=== PATIENT | male | born 1950 | race American Indian/Alaskan Native ===

== ENCOUNTER 2017-04-23 08:00 | Day surgery (SDC) | payer BC ==
--- NOTE | 2017-04-23 08:30 | Anesthesia Consultation ---
Anesthesia Consult and Med Hx Date of service: 04/23/17 - Airway Anesthetic Teeth Evaluation: Partials ROM Head & Neck: Adequate Mental/Hyoid Distance: Adequate Mallampati Class: Class II Intubation Access Assessment: Probably Good - Pulmonary Exam CTA: Yes - Cardiac Exam Cardiac Exam: RRR - Pre-Operative Health Status ASA Pre-Surgery Classification: ASA3 Proposed Anesthetic Plan: MAC - Cardiovascular System Hx Hypertension: Yes - Gastrointestinal Hx Gastroesophageal Reflux Disease: Yes (No symptoms today) - Endocrine Hx Non-Insulin Dependent Diabetes: Yes
--- NOTE | 2017-04-23 08:30 | Anesthesia Day of Surgery ---
Anesthesia Day of Surgery - Day of Surgery Patient Examined: Yes Patient H&P Reviewed: Yes Patient is NPO: Yes
[2017-04-23] MEDS ORDERED: XYLOCAINE 1% 20 mL ONE (08:41)
[2017-04-23] MEDS ORDERED: DIPRIVAN 10 MG/ML IV ONE ×2 (08:42)
[2017-04-23] MEDS ORDERED: PEPCID IV NR (09:00)
[2017-04-23] MEDS ORDERED: NACL 0.9% 1000 ML 1,000 ML IV SCH (09:00)
[2017-04-23] MEDS ORDERED: WATER FOR IRRIG STERILE IR ONE (09:05)
--- NOTE | 2017-04-23 09:49 | Short Stay Summary ---
Short Stay Documentation Date of service: 04/23/17 Narrative H&P: The patient presents for EGD for evaluation for Mckeon's and surveillance colonoscopy for history of polyps. His last colonoscopy was 6 years ago. - History Past Medical History: diabetes, hypertension, other (glaucoma) Past Surgical History: Other (fracture of extremity surgery) Social history: no significant social history, , lives with family, full code, no smoking, no alcohol abuse, no prescription drug abuse - Allergies and Medications Current Medications: Allergies No Known Allergies Allergy (Verified 04/23/17 08:13) Home Medications Medication Instructions Recorded Confirmed Last Taken Type Adult Low Dose Aspirin EC 81 mg PO DAILY 04/23/17 04/23/17 04/22/17 History Alphagan P 0.1% 0.1 mg INTRAOCULA DAILY 04/23/17 04/23/17 04/22/17 History AtorvaSTATin 10 mg PO DAILY 04/23/17 04/23/17 04/22/17 History Fluocinolone Acetonide 0.01 mg DAILY 04/23/17 04/23/17 04/22/17 History Fluticasone Propionate 50 mcg INHALATION DAILY 04/23/17 04/23/17 04/22/17 History Pantoprazole 40 mg PO BID 04/23/17 04/23/17 04/22/17 History Restasis 0.05% 0.05 mg INTRAOCULA DAILY 04/23/17 04/23/17 04/22/17 History Travatan Z 0.004% 0.004 mg INTRAOCULA DAILY 04/23/17 04/23/17 04/22/17 History Valsartan-Hctz 160-25 mg Tab 1 tab PO DAILY 04/23/17 04/23/17 04/23/17 History amLODIPine 10 mg PO DAILY 04/23/17 04/23/17 04/23/17 History metFORMIN 500 mg PO DAILY 04/23/17 04/23/17 04/22/17 History Active Medications Famotidine (Pepcid) 20 mg IV PREOP NR Stop: 04/23/17 11:00 Sodium Chloride (Nacl 0.9% 1000 Ml) 1,000 mls @ 50 mls/hr IV DIRECT JOHANNY Last Admin: 04/23/17 08:57 Dose: 50 mls/hr - Physical exam General appearance: no acute distress, well-nourished Integumentary: no rash, no growths, no abnormal pigmentation HEENT: Atraumatic, PERRLA, EOMI, Mucous membr. moist/pink Lungs: Clear to auscultation, Normal air movement Breasts: deferred Heart: Regular rate, Normal S1, Normal S2, No murmurs, no Gallops Gastrointestinal: normoactive bowel sounds, no tenderness, no distended, no masses, no organomegaly, no hepatomegaly, no splenomegaly Male Genitourinary: deferred Rectal Exam: normal exam-external/orifice, normal rectal tone, no mass Extremities: no ischemia, pulses intact, pulses symmetrical, No edema, normal temperature, normal color, Full ROM Neurological: Normal gait, Normal speech, Strength at 5/5 X4 ext, Normal tone, Sensation intact, Cranial nerves 3-12 NL - Brief post op/procedure progress note Date of procedure: 04/23/17 Findings: see dictated reports Estimated blood loss: none Pathology: list (biopsies of EG junction for possible Mckeon's) Specimen disposition: to lab Condition: stable - Disposition Condition at discharge: Good Disposition: DC-01 TO HOME OR SELFCARE - Discharge Diagnoses (1) GERD (gastroesophageal reflux disease) Status: Acute (2) History of colon polyps Status: Acute Short Stay Discharge Plan Activity: advance as tolerated Weight Bearing Status: Weight Bear as Tolerated Diet: diabetic Follow up with: JACK SALGADO MD [Primary Care Provider] - 7 Days
--- NOTE | 2017-04-23 09:54 | Operative Report ---
Operative Report Operative Report: Date of procedure: 04/23/2017 Preprocedure diagnosis: Personal history of colon polyps. Last study 6 years ago. Post procedure diagnosis: Extensive left colon diverticulosis, no recurrent polyps. Procedure: Colonoscopy to the cecum Endoscopist: Dr. Suarez Anesthesia: Monitored anesthesia care per anesthesia department Estimated blood loss: 0 Medications: Monitored anesthesia care. See separate report by anesthesia for details. After careful discussion of the nature and purpose of the procedure as well as details of the technique risks benefits and alternatives the patient gave consent. Please see recent history and physical from the office. The patient was placed in the left lateral decubitus position and medicated per anesthesia. A rectal exam was performed sphincter tone was normal there were no masses palpable. The eROIn 570 scope was passed transanally and advanced under continuous direct vision without difficulty to the cecum. The colon was well prepared. The cecum was normal. The ascending colon was normal and on forward and retroflexed views. The transverse colon was normal. The descending colon and sigmoid colon revealed extensive diverticulosis. The rectum was normal on forward and retroflexed views. The procedure was well-tolerated overall and the patient was observed in recovery. Conclusions: Extensive left colon diverticulosis. No recurrent polyps. Plan: Repeat colonoscopy in 5 years. Signed electronically: Derrek Suarez M.D.
--- NOTE | 2017-04-23 09:57 | Operative Report ---
Operative Report Operative Report: Date of procedure: 04/23/2017 Procedure: Esophagogastroduodenoscopy with biopsies at the esophagogastric junction for exclusion of Mckeon's Preprocedure diagnosis: Chronic gastroesophageal reflux, large hiatal hernia. Post procedure diagnosis: Moderately large hiatus hernia. Irregular Z line. Possible Mckeon's. Endoscopist: Dr. Suarez Anesthesia: Monitored anesthesia care per anesthesia department Medications: Propofol per anesthesia. Estimated blood loss: 0 After careful discussion of the nature and purpose of the procedure as well as details the technique risks benefits and alternatives consent was obtained. The patient was placed in the left lateral decubitus position and medicated per anesthesia. The tip of the Avansera EQ 570 video scope was passed per orum under direct vision into the esophagus and advanced into the stomach and descending duodenum. The descending duodenum the duodenal bulb and pylorus were symmetrical and normal. The scope was withdrawn into the stomach and the stomach then gently insufflated with air. The antrum was normal. The stomach was further insufflated and the scope was then retroflexed and partially withdrawn. The cardia, fundus, and body of the stomach were within normal limits and easily distensible.The scope was then withdrawn in the forward position. The esophagogastric junction was at 40 cm. There was a 3-4 cm sized hiatus hernia. The Z line was irregular. Multiple biopsies were taken just below the Z line to assess for possible short segment Mckeon's. The esophageal body was otherwise normal throughout. The procedure was was well tolerated and the patient was observed in recovery. Impressions: Moderately large hiatus hernia. Irregular Z line suspicious for possible short segment Mckeon's. Normal stomach otherwise. Normal duodenum and proximal esophagus. Plan: Continue PPI therapy. Await results of biopsies for possible Mckeon's Electronically signed: Derrek Suarez MD
[2017-04-23 10:00] VITALS: BP 112/68
--- NOTE | 2017-04-23 10:55 | Post Anesthesia Evaluation ---
- Post Anesthesia Evaluation Patient Participated: Yes Airway Patent: Yes Stable Respiratory Function: Yes Nausea/Vomiting: No Temp > 96.8F: Yes Pain Manageable: Yes Adequeate Hydration: Yes Anesthesia Complications: No Block Receding Appropriately: Not Applicable Patient on Ventilator: No
== END 2017-04-23 08:01 | disposition home or self-care (01) ==
LOC: GIO 08:00
PROVIDERS: ATTEND Internal Medicine Gastroenterology
DX: Z09 Encounter for follow-up examination after completed treatment for conditions other than malignant neoplasm (principal); K21.0 Gastro-esophageal reflux disease with esophagitis; K57.30 Diverticulosis of large intestine without perforation or abscess without bleeding; K44.9 Diaphragmatic hernia without obstruction or gangrene; E11.9 Type 2 diabetes mellitus without complications; I10 Essential (primary) hypertension; Z86.010 Personal history of colon polyps; Z98.890 Other specified postprocedural states
CPT/HCPCS: 43239; 45378; 82962; 88305; 88342; J2704; J7030; 88312